=== PATIENT | female | born 1955 | race Caucasian/White ===

== ENCOUNTER → 2017-05-16 | Outpatient (CLI) | payer BC ==
--- NOTE | ~2017-05-16 | MY29 ---
[facility] A Service of [facility] / [facility] RADIOLOGY TEXT RESULTS PATIENT: MARLINE [facility]ALE [id number] : [birth year] UNIT #: [id number] AGE: [address]: Ivy Kapadia MD SEX: F ORDER DR: [id number] [facility] [address] [place], [place] [address] [id number] O MR#: [id number] [facility] #: [id number] NAME: MARLINE HALE : 1955 SEX: F STUDY DATE/TIME: 05/16/2017 14:41 UNIT: [facility] ROOM: STUDY DESCRIPTION: MY MACIEJ SCREENING W/ CAD BILAT Attending Physician: Ivy Kapadia M.D. Referring Physician: Ivy Kapadia M.D. Ordering Physician: Ivy Kapadia M.D. Primary Care Physician: Ivy Kapadia M.D. MEDICAL IMAGING REPORT This report is preliminary unless electronic signature is present EXAM Digital screening mammogram 05/16/2017 HISTORY 61-year-old woman no risk elevation. Annual screen. COMPARISON 02/16/2013, 03/03/2014, 03/29/2016. FINDINGS Digital imaging of each breast was completed utilizing a two-view examination of each breast in craniocaudal and mediolateral-oblique projections. Review and interpretation of digital mammograms include a second review in conjunction with FDA-approved CAD device. There is a normal parenchymal presentation bilaterally consistent with the patient's age. There are no breast masses imaged and no parenchymal asymmetry is visualized. There are no suspicious microcalcifications and I see no focal architectural disturbance. IMPRESSION Negative screening digital mammogram. One-year followup recommended. Patients over the age of 40 are entered into a reminder system with target due date for the next mammogram. A result letter will also be sent to the patient. BIRADS: 1 Negative Dictated by... Sabino Taylor M.D. [facility] A Service of [facility] / [facility] RADIOLOGY TEXT RESULTS PATIENT: MARLINE HALE [facility] [id number] : [birth year] UNIT #: [id number] AGE: [address]: Ivy Kapadia MD SEX: F ORDER DR: THIS IS AN ELECTRONICALLY VERIFIED REPORT Sabino Taylor M.D. at 05/17/2017 2:54 PM JULIA/devika TD: 05/17/2017 14:25 JOB #: [id number] MEDICAL IMAGING REPORT Page 1 of 1 COPY
== END | disposition home or self-care (01) ==
LOC: CWCC 14:27
DX: Z12.31 Encounter for screening mammogram for malignant neoplasm of breast (principal)
CPT/HCPCS: G0202